=== PATIENT | female | born 1985 | race American Indian/Alaskan Native ===

== ENCOUNTER 2018-08-22 07:38 | Emergency (ER) | payer OTHER ==
[2018-08-22 07:50] VITALS: BP 135/79
[2018-08-22 09:01] LABS: Bacteria,Urine 1+ /HPF (Negative); Bilirubin,Urine NEG (Negative); Blood,Urine SM (Negative); Color,Urine Yellow (Yellow); Mucus,Urine FEW /HPF; Protein,Urine <15 mg/dL mg/dL (Negative); Urobilinogen,Urine < 2.0 mg/dL (<2.0)
[2018-08-22 09:12] LABS: HCG Qualitative,Urine Negative (Negative)
[2018-08-22] MEDS ORDERED: FLAGYL PO ONE (10:36)
--- NOTE | 2018-08-22 10:40 | Emergency Department Report ---
ED Female HPI - General Chief complaint: Urogenital-Female Stated complaint: VAGINAL ITCHING/BURNING Time Seen by Provider: 08/22/18 08:12 Source: patient Mode of arrival: Ambulatory Limitations: No Limitations - History of Present Illness Initial comments: Patient is a 32-year-old Female who is presenting with vaginal itching and burning for the past several days. Patient's denies dysuria or abnormal vaginal bleeding. She does state there is been some vaginal discharge present. Patient states she is not concerned with STDs at this time. Patient has some mild suprapubic discomfort. Patient denies any fevers chills nausea vomiting diarrhea at this time. - Related Data Previous Rx's Medication Instructions Recorded Last Taken Type Acetaminophen/Codeine [Tylenol #3] 1 tab PO Q6H PRN #14 tab 07/16/13 Unknown Rx Fluconazole [Diflucan] 150 mg PO QDAY #1 tablet 07/16/13 Unknown Rx cephALEXin [Keflex] 500 mg PO BID #20 capsule 07/16/13 Unknown Rx Fluconazole [Diflucan TAB] 150 mg PO ONCE #1 tablet 06/29/18 Unknown Rx metroNIDAZOLE [Metronidazole] 500 mg PO BID #14 tablet 06/29/18 Unknown Rx Allergies Allergy/AdvReac Type Severity Reaction Status Date / Time No Known Allergies Allergy Verified 06/29/18 07:04 ED Review of Systems ROS: Stated complaint: VAGINAL ITCHING/BURNING Other details as noted in HPI Comment: All other systems reviewed and negative ED Past Medical Hx - Past Medical History Previous Medical History?: No - Surgical History Past Surgical History?: No - Social History Smoking Status: Never Smoker Substance Use Type: Marijuana - Medications Home Medications: Home Medications Medication Instructions Recorded Confirmed Last Taken Type Acetaminophen/Codeine [Tylenol #3] 1 tab PO Q6H PRN #14 tab 07/16/13 Unknown Rx Fluconazole [Diflucan] 150 mg PO QDAY #1 tablet 07/16/13 Unknown Rx cephALEXin [Keflex] 500 mg PO BID #20 capsule 07/16/13 Unknown Rx Fluconazole [Diflucan TAB] 150 mg PO ONCE #1 tablet 06/29/18 Unknown Rx metroNIDAZOLE [Metronidazole] 500 mg PO BID #14 tablet 06/29/18 Unknown Rx ED Physical Exam - General Limitations: No Limitations General appearance: alert, in no apparent distress - Head Head exam: Present: atraumatic, normocephalic - Eye Eye exam: Present: normal appearance - ENT ENT exam: Present: mucous membranes moist - Neck Neck exam: Present: normal inspection - Respiratory Respiratory exam: Present: normal lung sounds bilaterally. Absent: respiratory distress, wheezes, rales, rhonchi - Cardiovascular Cardiovascular Exam: Present: regular rate, normal rhythm. Absent: systolic murmur, diastolic murmur, rubs, gallop - GI/Abdominal GI/Abdominal exam: Present: soft, normal bowel sounds. Absent: distended, tenderness, guarding, rebound - External exam: Present: normal external exam Speculum exam: Present: vaginal discharge, cervical discharge. Absent: vaginal bleeding, foreign body, tissue Bi-manual exam: Present: normal bi-manual exam. Absent: cervical motion tendernes, adnexal tenderness - Extremities Exam Extremities exam: Present: normal inspection - Back Exam Back exam: Present: normal inspection - Neurological Exam Neurological exam: Present: alert, oriented X3 - Psychiatric Psychiatric exam: Present: normal affect, normal mood - Skin Skin exam: Present: warm, dry, intact, normal color. Absent: rash ED Course Vital Signs 08/22/18 07:48 Temperature 99.1 F Pulse Rate 86 Respiratory 16 Rate Blood Pressure 135/79 O2 Sat by Pulse 99 Oximetry ED Medical Decision Making - Lab Data Lab Results 08/22/18 Range/Units 08:26 Urine Color Yellow (Yellow) Urine Turbidity Cloudy (Clear) Urine pH 5.0 (5.0-7.0) Ur Specific [place] 1.025 (1.003-1.030) Urine Protein <15 mg/dl (Negative) mg/dL Urine Glucose (UA) Neg (Negative) mg/dL Urine Ketones Neg (Negative) mg/dL Urine Blood Sm (Negative) Urine Nitrite Neg (Negative) Urine Bilirubin Neg (Negative) Urine Urobilinogen < 2.0 (<2.0) mg/dL Ur Leukocyte Esterase Lg (Negative) Urine WBC (Auto) 20.0 H (0.0-6.0) /HPF Urine RBC (Auto) 12.0 (0.0-6.0) /HPF U Epithel Cells (Auto) 23.0 H (0-13.0) /HPF Urine Bacteria (Auto) 1+ (Negative) /HPF Urine Mucus Few /HPF Urine HCG, Qual Negative (Negative) - Medical Decision Making Patient's clinically has a vaginitis does have a thin white discharge present. Wet prep shows no evidence of clue cells however patient will be given 2 g of Flagyl just to cover for false negative wet prep and the possibility of Trichomonas that was not seen on wet prep. Patient also given Diflucan for trace yeast that was found. Patient be discharged home with follow with [facility]. Critical care attestation.: If time is entered above; I have spent that time in minutes in the direct care of this critically ill patient, excluding procedure time. ED Disposition Clinical Impression: Acute vaginitis Disposition: DC-01 TO HOME OR SELFCARE Is pt being admited?: No Does the pt Need Aspirin: No Condition: Stable Instructions: Vaginitis (ED) Referrals: CHETAN LOTT MD [Primary Care Provider] - 3-5 Days Time of Disposition: 10:40
[2018-08-22] MEDS ORDERED: DIFLUCAN PO ONE (11:30)
== END 2018-08-22 11:00 | disposition home or self-care (01) ==
LOC: ED 07:38
DX: N76.0 Acute vaginitis (principal); B96.89 Other specified bacterial agents as the cause of diseases classified elsewhere; F12.10 Cannabis abuse, uncomplicated; Z88.5 Allergy status to narcotic agent; Z79.899 Other long term (current) drug therapy
CPT/HCPCS: 81001; 81025; 87086; 87210; 87591; 99284

== ENCOUNTER 2018-08-23 07:25 | Emergency (ER) | payer OTHER ==
[2018-08-23 07:57] VITALS: BP 131/74
--- NOTE | 2018-08-23 08:23 | Emergency Department Report ---
HPI - General Chief Complaint: Allergic Reaction Time Seen by Provider: 08/23/18 08:16 - HPI HPI: Patient is a 32-year-old black female who is here for vaginal discharge and itching yesterday and was given 2 g of Flagyl to cover for bacterial vaginosis and Trichomonas as well as Diflucan to cover for yeast infection. Patient states that since receiving these antibiotics in the emergency department she said a urticarial type rash of her face and some generalized itching. Patient also now states she has some itching on her right lower extremity as well. Patient denies any difficulty breathing or swallowing. Patient states she took one Benadryl prior to arrival which did help ease symptoms slightly. ED Past Medical Hx - Past Medical History Previous Medical History?: No - Surgical History Additional Surgical History: spontaneous x2 - Social History Smoking Status: Never Smoker Substance Use Type: Marijuana - Medications Home Medications: Home Medications Medication Instructions Recorded Confirmed Last Taken Type Acetaminophen/Codeine [Tylenol #3] 1 tab PO Q6H PRN #14 tab 07/16/13 Unknown Rx Fluconazole [Diflucan] 150 mg PO QDAY #1 tablet 07/16/13 Unknown Rx cephALEXin [Keflex] 500 mg PO BID #20 capsule 07/16/13 Unknown Rx Fluconazole [Diflucan TAB] 150 mg PO ONCE #1 tablet 06/29/18 Unknown Rx metroNIDAZOLE [Metronidazole] 500 mg PO BID #14 tablet 06/29/18 Unknown Rx Clotrimazole [3-Day Vaginal Cream] 21 gm VG DAILY 3 Days cream.appl 08/23/18 Unknown Rx diphenhydrAMINE [Benadryl CAP] 25 mg PO Q8HR PRN #10 capsule 08/23/18 Unknown Rx predniSONE [Deltasone] 20 mg PO QDAY #5 tab 08/23/18 Unknown Rx ED Review of Systems ROS: Stated complaint: ALLERGIC REACTION Other details as noted in HPI Comment: All other systems reviewed and negative Physical Exam - Physical Exam Vital Signs: Vital Signs 08/23/18 07:56 Temperature 99 F Pulse Rate 84 Respiratory 20 Rate Blood Pressure 131/74 [Right] O2 Sat by Pulse 100 Oximetry General: Patient alert and oriented 3 in no acute distress. ENT exam shows normal oropharynx. Lungs are clear to auscultation. Cardiovascular exam shows normal heart tones. Abdomen soft and nontender. Body Four View: 1 - Urticarial type rash 2 - Urticarial type rash ED Course Vital Signs 08/23/18 07:56 Temperature 99 F Pulse Rate 84 Respiratory 20 Rate Blood Pressure 131/74 [Right] O2 Sat by Pulse 100 Oximetry ED Medical Decision Making - Medical Decision Making Patient's was given a shot of Decadron here in the emergency department. Patient states she still has some vaginal itching. Patient restarted on an antifungal vaginal cream as well as being treated for the allergic reaction. Critical care attestation.: If time is entered above; I have spent that time in minutes in the direct care of this critically ill patient, excluding procedure time. ED Disposition Clinical Impression: Drug allergy, Yeast infection Disposition: DC-01 TO HOME OR SELFCARE Is pt being admited?: No Does the pt Need Aspirin: No Condition: Stable Instructions: Urticaria (ED) Referrals: CHETAN LOTT MD [Primary Care Provider] - 3-5 Days Time of Disposition: 08:52
[2018-08-23] MEDS ORDERED: DECADRON IM ONE (08:26)
== END 2018-08-23 09:07 | disposition home or self-care (01) ==
LOC: ED 07:25
DX: T50.905A Adverse effect of unspecified drugs, medicaments and biological substances, initial encounter (principal); B37.9 Candidiasis, unspecified; Z88.1 Allergy status to other antibiotic agents; Y92.89 Other specified places as the place of occurrence of the external cause
CPT/HCPCS: 96372; 99282; J1100